=== PATIENT | male | born 1960 | race Hispanic/Latino ===

== ENCOUNTER → 2022-11-07 | Day surgery (SDC) | payer BC ==
[~2022-11-07] MED LIST: EPINEPHRINE HCL 1:1000 1ML 1 MG/ML AMP ONE; FAMOTIDINE20 MG PO; LACTATED RINGER'S 1,000 ML ONE; LIDOCAINE HCL 2% LOCAL INJ 5 ML SDV VIAL INJ ONE; MIDAZOLAM HCL 2 MG/2 ML VIAL ONE; PROPOFOL IV EMULSION 10 MG/ML 20 ML VIAL ONE; PROPOFOL IV EMULSION 50 ML IV ONE; RIFAMPIN300 MG PO; ZESTRIL10 MG PO
[2022-11-07 14:28] VITALS: TEMP 97
[2022-11-07 14:45] VITALS: BP 135/87; PULSE 59; RESP 18; O2SAT 98
== END | disposition home or self-care (01) ==
LOC: OR 10:56
PROVIDERS: ATTEND Internal Medicine Gastroenterology
DX: R19.5 Other fecal abnormalities (principal); D12.2 Benign neoplasm of ascending colon; D12.3 Benign neoplasm of transverse colon; D12.4 Benign neoplasm of descending colon; D12.8 Benign neoplasm of rectum; K29.60 Other gastritis without bleeding; K29.80 Duodenitis without bleeding; K31.A0 Gastric intestinal metaplasia, unspecified; K21.00 Gastro-esophageal reflux disease with esophagitis, without bleeding; K44.9 Diaphragmatic hernia without obstruction or gangrene; K57.30 Diverticulosis of large intestine without perforation or abscess without bleeding; K64.8 Other hemorrhoids; I10 Essential (primary) hypertension; Z22.7 Latent tuberculosis; Z01.810 Encounter for preprocedural cardiovascular examination; Z79.899 Other long term (current) drug therapy; Z68.32 Body mass index [BMI] 32.0-32.9, adult
CPT/HCPCS: 43239; 45381; 45384; 45385; 93005; J0171; J2001; J2250; J2704 ×2; J7121; 45378